=== PATIENT | male | born 1945 | race Caucasian/White ===

== ENCOUNTER → 2019-04-27 15:45 | Outpatient (CLI) | payer OTHER, SELFPAY ==
--- NOTE | 2019-04-27 | DI.ECHO.S_ITS ---
[facility]---------+ [facility] +---------+ : : [address] : [place] [address] : : : : [id number] : : : : Phone: [phone]+ Echocardiogram Report + + :Name: DAGOBERTO RO Study Date: 04/27/2019 Height: 70 in : :[facility] Exam Location: [facility] Weight: 193 lb : : Gender: Male BSA: 2.1 m2 : :: 1945 Age: 73 yrs BP: 122/78 mmHg: :Reason For Study: CAD : : Performed By: Eduin French : :Referring: KAREY CHOWDHURY : + + Interpretation Summary The left ventricle is normal in size. The ejection fraction is estimated to be 60-65%. The right ventricle is normal in size and function. No significant valvular pathology seen. The ascending aorta is mildly enlarged. Procedure: A two-dimensional transthoracic echocardiogram with color flow and Doppler was performed. The study quality was technically adequate. There is no prior echocardiogram noted for this patient. The patient was in normal sinus rhythm during the exam. Left Ventricle: The left ventricle is normal in size. Proximal septal thickening is noted. There is no echo evidence for significant left ventricular outflow tract obstruction. There is no thrombus. A false chord is noted (normal variant). The ejection fraction is estimated to be 60-65%. There are no focal wall motion abnormalities. MV E/A: 1.1 Med Peak E' Cristhian: 6.0 cm/sec E/E' med: 13.8. Right Ventricle: The right ventricle is normal in size and function. Atria: Both atria are mildly dilated. The interatrial septum is intact with no evidence for an atrial septal defect. Mitral Valve: There is mild mitral annular calcification. Redundant elongated chordae are noted. There is mild mitral regurgitation. Aortic Valve: The aortic valve is trileaflet. The aortic valve opens well. No aortic regurgitation is present. Tricuspid Valve: The tricuspid valve is normal in structure and function. There is mild tricuspid regurgitation. The right ventricular systolic pressure is estimated to be at least 25 mmHg based on an estimated right atrial pressure of 3 mm Hg. Pulmonic Valve: The pulmonic valve is not well seen, but is grossly normal. There is trace pulmonic regurgitation. Great Vessels: The aortic root is normal size. The ascending aorta is mildly enlarged. The aortic arch is mildly enlarged. The pulmonary artery is normal size. The IVC is of normal diameter and collapses greater than 50% with a sniff. This suggests a low right atrial pressure of 3 mm Hg. Pericardium/ Pleura There is no pericardial effusion. There is no pleural effusion. MMode/2D Measurements & Calculations LVIDd: 4.6 cm LVOT diam: 2.3 cm LVIDs: 2.5 cm Ao root diam: 3.4 cm FS: 44.9 % Aortic Jxn: 2.7 cm EPSS: 0.45 cm asc Aorta Diam: 3.9 cm IVSd: 0.89 cm Ao Arch Diam (Prox Trans): 3.2 cm LVPWd: 0.81 cm LV simental. diameter/BSA (cm/m^2): 2.2 LV sys. diameter/BSA (cm/m^2): 1.2 LA dimension: 4.1 cm RA long axis: 5.0 cm LA A2 area: 25.3 cm2 RA area: 20.0 cm2 LA A4 area: 21.8 cm2 RA vol: 67.5 ml LA length (vol): 6.0 cm RA : 32.8 ml/m2 LA vol: 77.8 ml IVC diam: 2.0 cm LA vol index: 37.9 ml/m2 RVD1 (basal): 4.4 cm RVD2 (mid): 3.9 cm Doppler Measurements & Calculations Ao V2 max: 123.0 cm/sec LVOT Max Cristhian: 105.4 cm/sec Ao V2 mean: 89.4 cm/sec LV V1 max P.4 mmHg Ao max P.1 mmHg LV V1 VTI: 25.2 cm Ao mean P.4 mmHg HUSSEIN(I,D): 3.4 cm2 Ao V2 VTI: 30.2 cm HUSSEIN(V,D): 3.5 cm2 sev ratio: 0.83 HUSSEIN indexed to BSA (cm^2/m^2): 1.7 MV E max cristhian: 82.7 cm/sec TR max cristhian: 234.5 cm/sec MV A max cristhian: 72.2 cm/sec TR max P.0 mmHg MV E/A: 1.1 PA V2 max: 72.5 cm/sec Med Peak E' Cristhian: 6.0 cm/sec PA V2 mean: 51.7 cm/sec E/E' med: 13.8 PA mean P.2 mmHg Lat Peak E' Cristhian: 7.8 cm/sec PA pr(Accel): 44.1 mmHg E/E' lat: 10.5 E/e' average: 12.2 MV dec time: 0.18 sec SV(LVOT): 103.4 ml Reading Physician:07:28 PM
== END ==
PROVIDERS: Visit Provider Physician Assistant
DX: I08.1 Rheumatic disorders of both mitral and tricuspid valves (principal); I25.9 Chronic ischemic heart disease, unspecified; I77.89 Other specified disorders of arteries and arterioles
CPT/HCPCS: 93306